=== PATIENT | male | born 1995 | race Caucasian/White ===

== ENCOUNTER 2018-04-22 08:27 | Outpatient (CLI) | payer OTHER ==
[2018-04-22 10:13] LABS: #Basophils 0.1 thou/uL (0.0-0.2); #Eosinphils 0.1 thou/uL (0.0-0.7); #Lymphocytes 1.8 thou/uL (1.20-3.40); #Monocytes 0.4 thou/uL (0.11-0.59); #Neutrophils 3.6 thou/uL (1.40-6.50); %Basophils 1.4 % (0.0-1.0); %Eosinophils 2.4 % (0.0-10.0); %Lymphocytes 30.1 % (21.0-51.0); %Monocytes 6.1 % (0.0-10.0); Hemoglobin 15.7 g/dL (14.0-18.0); Mean Corpuscular HGB CONC 32.3 g/dL (32.0-36.0); Mean Corpuscular Hemoglobin 28.5 pg (27.0-31.0); Mean Corpuscular Volume 88.3 fL (78.0-98.0); Mean Platelet Volume 8.4 fL (7.4-10.4); Platelet Count 247 thou/uL (130-400); RBC Distribution Width 12.3 % (11.5-14.5); Red Blood Cell (RBC) Count 5.51 mill/uL (4.70-6.10)
[2018-04-22 10:33] LABS: Anion Gap 11 mmol/L (10-20); BUN (Urea Nitrogen) 19 mg/dL (8.9-20.6); Calc. Creatinine Clearance 0 mL/min (70-130); Calcium 9.6 mg/dL (7.8-10.44); Carbon Dioxide 27 mmol/L (22-29); Chloride 104 mmol/L (98-107); Estimated GFR-MDRD Greater than 90; Glucose 91 mg/dL (70-105); Potassium 4.1 mmol/L (3.5-5.1); Sodium 138 mmol/L (136-145)
== END 2018-04-22 08:28 | disposition home or self-care (01) ==
LOC: LABBT 08:27
PROVIDERS: ATTEND Surgery
DX: Z01.812 Encounter for preprocedural laboratory examination (principal); L05.91 Pilonidal cyst without abscess
CPT/HCPCS: 80048; 85025

== ENCOUNTER 2018-04-29 05:42 | Day surgery (SDC) | payer OTHER ==
[2018-04-22 08:48] VITALS: BMI 35.2
[2018-04-29] MEDS ORDERED: CEFAZOLIN 2 GM/50 ML BAG ONE (06:34)
[2018-04-29] MEDS ORDERED: Bupivacaine/Epinephrine 0.25% 30 ML VIAL ONE ×2 (07:01→09:09)
[2018-04-29] MEDS ORDERED: Bacitracin Zinc Ointment 30 gm TUBE ONE (07:01)
[2018-04-29] MEDS ORDERED: Fentanyl 100 MCG/2 ML VIAL ONE (07:42)
[2018-04-29] MEDS ORDERED: PHENYLEPHRINE-NS 100 MCG/ML 10 ML SYRINGE ONE (13:38)
[2018-04-29] MEDS ORDERED: Glycopyrrolate 0.2 MG/ML 5 ML SYRINGE ONE (13:38)
[2018-04-29] MEDS ORDERED: Dexamethasone 20 MG/5 ML VIAL ONE (13:38)
[2018-04-29] MEDS ORDERED: PROPOFOL 200 MG/20 ML VIAL ONE (13:38)
[2018-04-29] MEDS ORDERED: Metoclopramide HCl 10 MG/2 ML VIAL ONE (13:38)
[2018-04-29] MEDS ORDERED: Ketorolac Tromethamine 30 MG/ML VIAL ONE ×2 (13:38)
[2018-04-29] MEDS ORDERED: Esmolol 100 MG/10 ML VIAL ONE (13:38)
[2018-04-29] MEDS ORDERED: Ondansetron PF 4 MG/2 ML Vial ONE (13:38)
[2018-04-29] MEDS ORDERED: Lidocaine 1% PF 5 ML VIAL ONE (13:38)
--- NOTE | 2018-04-29 17:59 | PDOC.OP ---
Operative Note - Operative Note Operative Note: PROCEDURE: Excision of pilonidal cysts DATE OF PROCEDURE: 04/29/2018 SURGEON: Emre Gan M.D. 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 This was debrided and drained and the infectious symptoms resolved, but he had a chronic sinus at the I&D site and multiple other sinuses in the gluteal cleft. Excision was recommended for definitive treatment. PROCEDURE IN DETAIL: After informed consent was obtained and appropriate preoperative antibiotics administered, the patient was taken to the operating room he was placed in supine position and general endotracheal anesthesia was administered. He was then moved to the prone position with appropriate padding and support of extremities. He was prepped and draped in the prone jackknife position and methylene blue instilled into each of the sinuses using an Angiocath. Local anesthesia was infused circumferentially for a field block. Since there were several adjacent sinuses a long elliptical incision was made incorporating all of the sinuses including the large sinus superiorly. All of the pilonidal cysts were excised en bloc and the subcutaneous tissues mobilized off of the gluteal muscles laterally to allow closure. A second flap was created beneath the skin to allow the subcutaneous tissues to come together without tension. Additional local anesthesia was infused for postoperative pain control and the wound was irrigated and examined for hemostasis which was obtained throughout the case using Bovie electrocautery. The deep subcutaneous tissues were reapproximated with interrupted [id number] Vicryl sutures. The superficial subcutaneous tissues were then likewise reapproximated with [id number] Vicryl sutures. The skin incision was closed with interrupted vertical mattress sutures and bacitracin gauze and Tegaderm were placed to the wound. The patient was then moved back to the supine position and extubated and taken to recovery in good condition. Estimated blood loss was minimal. There were no complications. Specimen is pilonidal cysts.
--- NOTE | 2018-05-02 11:45 | EKG ---
Test Reason : PREOP Blood Pressure : / mmHG Vent. Rate : 082 BPM Atrial Rate : 082 BPM P-R Int : 154 ms QRS Dur : 090 ms QT Int : 362 ms P-R-T Axes : 064 042 033 degrees QTc Int : 422 ms Normal sinus rhythm with sinus arrhythmia Normal ECG No previous ECGs available Confirmed by ELIZ PACK ([id number]) on 05/02/2018 11:45:27 AM Referred By: [email or web address] Confirmed By:ELIZ PACK
== END 2018-04-29 12:00 | disposition home or self-care (01) ==
LOC: SDC 05:42
PROVIDERS: ATTEND Surgery
PROC: 0JB90ZZ Excision of Buttock Subcutaneous Tissue and Fascia, Open Approach (ICD-10-PCS; principal; 2018-04-29)
DX: L05.91 Pilonidal cyst without abscess (principal); F41.8 Other specified anxiety disorders; Z98.890 Other specified postprocedural states
CPT/HCPCS: 88304; 93005; 93010; J1100; J1885; J2001; J2405; J2704; J2765; J3010; Q9968